=== PATIENT | male | born 1965 | race Caucasian/White ===

== ENCOUNTER → 2017-09-07 14:33 | Outpatient (CLI) | payer BC ==
[2017-09-07 15:32] LABS: ALBUMIN 3.8 g/dL (3.4-5.0); ANION GAP 12.9 mmol/L (8-16); BILIRUBIN - TOTAL 0.31 mg/dL (0.2-1.3); CALCIUM 10.3 mg/dL (8.5-10.1); CARBON DIOXIDE 27.7 mmol/L (21.0-32.0); CREATININE - SERUM 1.4 mg/dL (0.6-1.3); POTASSIUM - SERUM 3.6 mmol/L (3.5-5.1); PROTEIN - SERUM 7.5 g/dL (6.4-8.2); T4 THYROXIN - FREE 0.9 ng/dL (0.76-1.46); THYROID STIMULATING HORMONE 1.82 uIU/mL (0.36-3.74)
[2017-09-07 16:05] LABS: ERYTHROCYTE SEDIMENTATION RATE 10 mm/hr (0-20)
[2017-09-08 08:14] LABS: VITAMIN D 25 HYDROXY 34.3 ng/mL (30.0-100.0)
== END | disposition home or self-care (01) ==
LOC: D.LAB 14:33
PROVIDERS: Family Medicine
DX: Z00.00 Encounter for general adult medical examination without abnormal findings (principal); R53.83 Other fatigue; Z72.0 Tobacco use; M79.1 Myalgia; F32.9 Major depressive disorder, single episode, unspecified; R01.1 Cardiac murmur, unspecified; R73.9 Hyperglycemia, unspecified

== ENCOUNTER → 2018-08-20 16:59 | Outpatient (CLI) | payer BC | END | disposition home or self-care (01) | LOC: D.LAB 16:59 | PROVIDERS: ATTEND Nurse Practitioner | DX: E29.1 Testicular hypofunction (principal); R53.83 Other fatigue ==

== ENCOUNTER → 2019-01-11 14:03 | Outpatient (CLI) | payer BC ==
[2019-01-11 14:29] LABS: ANION GAP 11.5 mmol/L (8-16); CALCIUM 9.5 mg/dL (8.5-10.1); CARBON DIOXIDE 28.3 mmol/L (21.0-32.0); CREATININE - SERUM 1.6 mg/dL (0.6-1.3); POTASSIUM - SERUM 3.8 mmol/L (3.5-5.1)
== END | disposition home or self-care (01) ==
LOC: D.LABREF 14:03
PROVIDERS: ATTEND Family Medicine
DX: E29.1 Testicular hypofunction (principal); N28.9 Disorder of kidney and ureter, unspecified; E11.9 Type 2 diabetes mellitus without complications; D64.9 Anemia, unspecified; E78.5 Hyperlipidemia, unspecified

== ENCOUNTER → 2019-04-19 15:53 | Outpatient (CLI) | payer BC ==
[2019-04-22 15:09] LABS: IMMUNOFIXATION Note: (()); IMMUNOGLOBULIN A 348 mg/dL (90-386); IMMUNOGLOBULIN G 868 mg/dL (700-1600); IMMUNOGLOBULIN M 34 mg/dL (20-172)
[2019-04-22 17:08] LABS: ANCA - ANTIMYELOPEROXIDASE <9.0 U/mL (0.0-9.0); ANCA - ANTIPROTEINASE 3 <3.5 U/mL (0.0-3.5); ANCA - ATYPICAL <1:20 titer (Neg:<1:20); ANCA - CYTOPLASMIC <1:20 titer (Neg:<1:20); ANCA - PERINUCLEAR <1:20 titer (Neg:<1:20)
== END | disposition home or self-care (01) ==
LOC: D.LAB 15:53
PROVIDERS: ATTEND Nurse Practitioner Family
DX: N18.3 Chronic kidney disease, stage 3 (moderate) (principal); Z68.32 Body mass index [BMI] 32.0-32.9, adult